=== PATIENT | male | born 1975 | race Hispanic/Latino ===

== ENCOUNTER 2025-05-19 02:31 | Inpatient (IN) | payer SELFPAY ==
[2025-05-19 03:09] LABS: #Basophils 0.04 10x3/uL (0.0-0.2); #Eosinophils 0.04 10x3/uL (0.0-0.7); #Monocytes 0.23 10x3/uL (0.11-0.59); #Neutrophils 2.20 10x3/uL (1.40-6.50); %Basophils 0.9 % (0.0-1.0); %Eosinophils 0.9 % (0.0-10.0); %Lymphocytes 41.8 % (21.0-51.0); %Monocytes 5.3 % (0.0-10.0); %Neutrophils 51.1 % (42.0-75.0); Hematocrit 35.7 % (42.0-52.0); Hemoglobin 11.8 g/dL (14.0-18.0); Mean Corpuscular Hemoglobin 31.4 pg (27.0-31.0); Mean Corpuscular Volume 94.9 fL (78.0-98.0); Platelet Count 299 10x3/uL (130-400); Red Blood Cell (RBC) Count 3.76 mill/uL (4.70-6.10); White Blood Cell (WBC) Count 4.31 10x3/uL (4.8-10.8)
[2025-05-19 03:35] LABS: Acetaminophen Less than 10 mcg/mL (Less than 10); Salicylate Less than 8.0 mg/dL (Less than 8.0)
[2025-05-19 03:36] LABS: ALT (SGPT) 23 U/L (Less than 45); AST (SGOT) 49 U/L (11-34); Albumin 3.8 g/dL (3.1-4.5); Alkaline Phosphatase 73 U/L (40-110); Anion Gap 14 mmol/L (10-20); BUN (Urea Nitrogen) 21 mg/dL (8.9-20.6); Bilirubin, Total 0.4 mg/dL (0.3-1.2); Calc. Creatinine Clearance 0 mL/min (70-130); Calcium 8.1 mg/dL (7.8-10.44); Carbon Dioxide 20 mmol/L (22-29); Chloride 111 mmol/L (98-107); Globulin 3.5 g/dL (2.4-3.5); Glucose 128 mg/dL (70-105); Potassium 4.0 mmol/L (3.5-5.1); Sodium 141 mmol/L (136-145)
[2025-05-19] MEDS ORDERED: Ondansetron PF 4 MG/2 ML Vial IVP PRN (05:49)
[2025-05-19 06:27] LABS: Magnesium 2.2 mg/dL (1.6-2.6)
[2025-05-19 08:16] LABS: Bacteria/HPF None Seen HPF (None Seen); CAUTI Indications for Culture Dysuria,urgency,freq; Glucose, Urine (Dipstick) Normal (Negative); Leukocyte Negative Leu/uL (Negative); Protein, Urine (Dipstick) Negative (Neg-Trace); RBC/HPF 0-3 HPF (0-3); Specific Gravity, Urine 1.020 (1.002-1.036); WBC/HPF 0-3 HPF (0-3)
[2025-05-19 08:21] LABS: Urine Culture Reflex No No
[2025-05-19 08:22] LABS: Cocaine Metabolite Screen Negative (Negative); THC/Cannabinoid Screen Negative (Negative); Tricyclic Screen Negative (Negative)
[2025-05-19] MEDS ORDERED: Ketorolac Tromethamine 30 MG (1 mL) VIAL ONE (08:31)
[2025-05-19] MEDS ORDERED: Folic Acid 1 MG TAB ONE (08:31)
[2025-05-19] MEDS ORDERED: Thiamine 100 MG TAB ONE (08:32)
[2025-05-19] MEDS ORDERED: Multivit, Therapeutic 1 TAB ONE (08:32)
[2025-05-19] MEDS: Ketorolac Tromethamine 30 MG (1 mL) VIAL IVP SCH ×2 (08:49→17:41)
[2025-05-19] MEDS: Multivitamin W/ Minerals 1 TAB PO SCH (08:50)
[2025-05-19] MEDS: Thiamine 100 MG TAB PO SCH (08:50)
[2025-05-19] MEDS: Folic Acid 1 MG TAB PO SCH (08:50)
[2025-05-19] MEDS ORDERED: Iopamidol 370 76% 100 ML VIAL ONE (09:58)
[2025-05-19] MEDS ORDERED: Hydrocortisone Acetate 25 MG Suppository PR PRN (10:02)
[2025-05-19] MEDS: Hydrocortisone Acetate 25 MG Suppository PR SCH (11:23)
[2025-05-19 13:46] VITALS: BMI 21.6
[2025-05-19 13:52] LABS: Bacteria/HPF None Seen HPF (None Seen); CAUTI Indications for Culture Alt mental st,lethar; Glucose, Urine (Dipstick) Normal (Negative); Leukocyte Negative Leu/uL (Negative); Protein, Urine (Dipstick) Negative (Neg-Trace); RBC/HPF 0-3 HPF (0-3); Specific Gravity, Urine 1.036 (1.002-1.036); WBC/HPF 0-3 HPF (0-3)
[2025-05-19 13:54] LABS: Urine Culture Reflex No No
[2025-05-19] MEDS: Acetaminophen 325 MG TAB PO PRN (16:12)
[2025-05-19] MEDS: Ketorolac Tromethamine 30 MG (1 mL) VIAL IVP PRN (21:24)
[2025-05-20 04:34] LABS: #Basophils 0.04 10x3/uL (0.0-0.2); #Eosinophils 0.03 10x3/uL (0.0-0.7); #Monocytes 0.35 10x3/uL (0.11-0.59); #Neutrophils 2.49 10x3/uL (1.40-6.50); %Basophils 0.8 % (0.0-1.0); %Eosinophils 0.6 % (0.0-10.0); %Lymphocytes 40.9 % (21.0-51.0); %Monocytes 7.1 % (0.0-10.0); %Neutrophils 50.4 % (42.0-75.0); Hematocrit 35.1 % (42.0-52.0); Hemoglobin 11.7 g/dL (14.0-18.0); Mean Corpuscular Hemoglobin 32.1 pg (27.0-31.0); Mean Corpuscular Volume 96.4 fL (78.0-98.0); Platelet Count 311 10x3/uL (130-400); Red Blood Cell (RBC) Count 3.64 mill/uL (4.70-6.10); White Blood Cell (WBC) Count 4.94 10x3/uL (4.8-10.8)
[2025-05-20 04:57] LABS: ALT (SGPT) 23 U/L (Less than 45); AST (SGOT) 47 U/L (11-34); Albumin 3.1 g/dL (3.1-4.5); Alkaline Phosphatase 69 U/L (40-110); Anion Gap 13 mmol/L (10-20); BUN (Urea Nitrogen) 17 mg/dL (8.9-20.6); Bilirubin, Total 1.5 mg/dL (0.3-1.2); Calc. Creatinine Clearance 103 mL/min (70-130); Calcium 8.1 mg/dL (7.8-10.44); Carbon Dioxide 18 mmol/L (22-29); Chloride 110 mmol/L (98-107); Globulin 3.2 g/dL (2.4-3.5); Glucose 82 mg/dL (70-105); Magnesium 1.6 mg/dL (1.6-2.6); Potassium 3.7 mmol/L (3.5-5.1); Sodium 137 mmol/L (136-145)
[2025-05-20 09:09] VITALS: BMI 21.6
[2025-05-20] MEDS: PNEUMOC 20-VAL CONJ-DIP CRM/PF 0.5 ML SYRINGE IM ONE (09:19)
[2025-05-20 12:12] VITALS: BP 135/86; TEMP 98.9
== END 2025-05-20 15:23 | disposition home or self-care (01) | DRG 896 ==
LOC: ERS 02:31 → ERHOLD 05:51 → PCU 12:47
PROVIDERS: ADMIT Internal Medicine; ATTEND Family Medicine
PROC: HZ2ZZZZ Detoxification Services for Substance Abuse Treatment (ICD-10-PCS; principal; 2025-05-19)
DX: F10.129 Alcohol abuse with intoxication, unspecified (principal); G93.41 Metabolic encephalopathy; R00.1 Bradycardia, unspecified; M54.2 Cervicalgia; K64.9 Unspecified hemorrhoids; H53.149 Visual discomfort, unspecified; Z79.899 Other long term (current) drug therapy; Y90.6 Blood alcohol level of 120-199 mg/100 ml
CPT/HCPCS: 36415; 70450; 70496; 70498; 70551; 80053; 80306; 80307; 81001; 83735; 84443; 85025; 93005; 93306; 96361; 96374; J0461; J1885; J7120; Q9967